=== PATIENT | male | born 1990 | race African-American/Black ===

== ENCOUNTER 2023-01-18 19:27 | Emergency (ER) | payer SELFPAY ==
[2023-01-18 20:01] VITALS: BP 140/79; PULSE 75; RESP 16; TEMP 36.9; O2SAT 100; BMI 23.3
--- NOTE | 2023-01-18 20:01 | ED_ITS ---
HPI - Neck Pain/Injury General Chief Complaint: Neck Pain/Injury Stated Complaint: Neck pain and Headache Time Seen by Provider: 01/18/23 20:06 Source: patient Mode of arrival: ambulatory Limitations: no limitations History of Present Illness HPI Narrative: 33 yo male presents to the ER for evaluation of posterior headache and stiff neck for the last 3 days. He states he woke up with the pain on the left side of his neck. It is worse with movement. He then developed a posterior headache. He has brief improvement with tylenol and Advil. No known injuries. No confusion, fever, chills, weakness, numbness or tingling. MD complaint: neck pain, upper back pain and other (headache) Onset (ago): day(s) (3) Place: home Radiation: left lateral, head and occiput Severity: moderate Severity scale (1-10): 6 Quality: aching and other (stiffness) Duration: constant Relieving factors: immobilization Exacerbating factors: movement of neck Associated symptoms: headache Treatments prior to arrival: none Related Data Previous Rx's Medication Instructions Recorded cyclobenzaprine 10 mg tablet 10 mg PO TID PRN muscle spasm #14 01/18/23 tabs lidocaine 5 % topical patch 1 patch topical DAILY #15 ea 01/18/23 naproxen 500 mg tablet 500 mg PO BID PRN pain #20 tabs 01/18/23 Allergies Allergy/AdvReac Type Severity Reaction Status Date / Time No Known Allergies Allergy Verified 01/18/23 20:04 Review of Systems Review of Systems: Yes all other systems are reviewed and are negative [facility] Social History Social History Advance Directives: No Advance Directives Information Provided: No Physical Exam Vital Signs: Vital Signs: Last Vital Signs Temp 98.5 F 01/18/23 20:01 Pulse 75 01/18/23 20:01 Resp 16 01/18/23 20:01 BP 140/79 H 01/18/23 20:01 Pulse Ox 100 01/18/23 20:01 O2 Del Method Room Air 01/18/23 20:01 BMI result Body Mass Index 23.3 Appearance: Alert. Oriented X3. No acute distress. HEENT: normal external inspection. normal TMs bilaterally. PERRL, EOMI. Neck: normal inspection. no midline tenderness. pain with rotation to the right. soft tissue tenderness of the left lateral neck and occipital area. CVS: Normal heart rate and rhythm. Pulses normal. Respiratory: No respiratory distress. Skin: Skin warm and dry. Normal skin color. Normal skin turgor. No rashes. Extremities: normal inspection x4, no joint swelling Neuro: Oriented X 3. No motor deficit. No sensory deficit. Medical Decision Making Medical Decision Making MDM Narrative: 33 yo male presenting to the ER for evaluation of nontraumatic left sided neck pain and occipital headache for the last 3 days. Exam and clinical presentation are c/w muscle strain and spasm. will treat accordingly. stable for d/c home. return precautions discussed. Differential Diagnosis Differential Diagnoses: The differential diagnosis associated with the presentation includes cervical muscle strain, torticollis, migraine headache, cluster headache, doubt meningitis or dissection Prescription Management I considered prescription management with: Pain Medication and Other (muscle relaxer) Critical Care Time Critical Care Time Critical Care Time: No Discharge Plan Discharge Clinical Impression: Cervical muscle strain Patient Disposition: Home, Self-Care Instructions: Cervical Strain (DC) Additional Instructions: Your pain is most likely due to muscle strain and spasm. Use ice several times per day for 20 minutes at a time for the next 48 hours and then change to heat. Gently work on range of motion of the neck and massage the areas of stiffness. Take medications as prescribed to help with pain and discomfort. Also recommend taking Tylenol 975 mg every 6-8 hours. Follow up with your Primary Care Doctor as needed. If you develop new or worsening symptoms call 911 or come back to the ER for further evaluation. Prescriptions: New cyclobenzaprine 10 mg tablet 10 mg PO TID PRN (Reason: muscle spasm) Qty: 14 0RF lidocaine 5 % adhesive patch,medicated 1 patch topical DAILY Qty: 15 0RF Rx Instructions: leave on most painful area for up to 12 hrs naproxen 500 mg tablet 500 mg PO BID PRN (Reason: pain) Qty: 20 0RF Interventions: ED Discharge Assessment Last Done: 01/18/23 20:11 Discharge Date/Time: 01/18/23 20:13
== END 2023-01-18 20:13 | disposition home or self-care (01) ==
PROVIDERS: Emergency Provider Internal Medicine
DX: M54.2 Cervicalgia (principal); R51.9 Headache, unspecified
CPT/HCPCS: 99282; 99283

== ENCOUNTER 2023-02-17 13:55 | Emergency (ER) | payer SELFPAY ==
[2023-02-17 14:11] VITALS: BP 138/85; PULSE 78; RESP 18; TEMP 36.9; O2SAT 98; BMI 28.2
--- NOTE | 2023-02-17 14:25 | ED_ITS ---
HPI - General Adult General Chief complaint: General Medical Stated complaint: tonsil infection Time Seen by Provider: 02/17/23 15:53 Source: patient, RN notes reviewed and old records reviewed Mode of arrival: ambulatory Limitations: no limitations History of Present Illness HPI narrative: Patient reports sore throat for the last couple days. Denies fever or chills. Blood work showed leukocytosis. [place] screen pending. COVID and strep negative. Patient otherwise is negative exam. Onset (ago): day(s) Location: mouth ( throat) Severity: mild Related Data Previous Rx's Medication Instructions Recorded cyclobenzaprine 10 mg tablet 10 mg PO TID PRN muscle spasm #14 01/18/23 tabs lidocaine 5 % topical patch 1 patch topical DAILY #15 ea 01/18/23 naproxen 500 mg tablet 500 mg PO BID PRN pain #20 tabs 01/18/23 ibuprofen 600 mg tablet 600 mg PO Q8H PRN pain #20 tabs 02/17/23 Allergies Allergy/AdvReac Type Severity Reaction Status Date / Time No Known Allergies Allergy Verified 01/18/23 20:04 Review of Systems 2 Constitutional: Constitutional: Reports as per HPI and Reports no additional constitutional complaints Eyes: Eyes: Reports no additional eye complaints ENT: Reports system reviewed and no additional complaints, except as documented, Denies dental pain, Denies dysphagia, Denies dry mouth, Denies ear discharge, Denies otalgia, Denies facial pain, Denies hearing loss, Denies hoarseness and Denies mouth lesions Cardiovascular: Cardiovascular: Reports no additional cardiovascular complaints Respiratory: Respiratory: Reports no additional respiratory complaints Gastrointestinal: Gastrointestinal: Reports no additional gastrointestinal complaints and Denies dysphagia Musculoskeletal: Musculoskeletal: Reports no additional musculoskeletal complaints Integumentary/Breasts: Skin/Breast: Reports system reviewed and no additional complaints, except as docu PMFSH Social History Social History Advance Directives: No Advance Directives Information Provided: No Physical Exam ED Vital Signs: Vital Signs - 24 hr 02/17/23 14:11 Temperature 98.5 F Pulse Rate 78 Respiratory Rate 18 Blood Pressure 138/85 Pulse Oximetry 98 Oxygen Delivery Method Room Air BMI result Body Mass Index 28.2 Const General: healthy appearing, no acute distress and well developed Nutritional Appearance: well nourished Orientation/consciousness: patient oriented x3 HENMT Head: Yes normal to inspection, Yes normocephalic and Yes atraumatic Face and sinus: Yes normal facial exam Mouth: Normal oral and palatal mucosa present Throat: Yes posterior oropharynx normal, Yes tonsils normal and Yes uvula midline Eyes General: appearance normal, both eyes and all related structures Neck Neck: Yes normal visual inspection, Yes full ROM and Yes trachea midline Thyroid: Thyroid normal Resp Effort & Inspection: normal respiratory effort, able to speak in complete sentences, no tracheal deviation and symmetric chest movement Auscultation: clear to auscultation bilaterally Cardio Rate: regular rate General: Yes no CVA tenderness Back/Spine/Pelvis Back: no CVA tenderness Skin General skin exam: elasticity normal, turgor normal and dry skin Neuro General: patient oriented x3 Psych Appearance: grossly normal Mental Status: mental status grossly normal Speech and movement: Normal speech and movement present Course Course Course Narrative: MIRIAM- 14:25PM 33yoM who is [place] Creole speaking presenting to the ER with complaints of a sore throat for the past 2 days. Reports that he has similar complaints and he went to [facility] on Tuesday and had to be given IV fluids due to he had some PRISCILLA. Although he was not given any antibiotics. He denies any other symptoms related to this. Denies recent travel. Plan: Labs, strep and COVID ordered patient sent back to the waiting room [place] [facility] [place] Patient reports sore throat for the last couple days. Denies fever or chills. Blood work showed leukocytosis. [place] screen pending. COVID and strep negative. Patient otherwise is negative exam. Will be sent home with ibuprofen. Patient will need to increase fluid intake, rest. Most likely viral Medical Decision Making Medical Decision Making [facility] Narrative: Patient reports sore throat for the last couple days. Denies fever or chills. Blood work showed no leukocytosis. [place] screen pending. COVID and strep negative. Patient otherwise is negative exam. Will be sent home with ibuprofen. Patient will need to increase fluid intake, rest. Most likely viral Differential Diagnosis Differential Diagnoses: The differential diagnosis associated with the presentation includes pharyngitis, strep, viral illness Lab Data 02/17/23 15:40 02/17/23 15:40 Labs: Lab Results 02/17/23 02/17/23 Range/Units 15:36 15:40 WBC 8.5 (4.8-10.8) X10*3/uL RBC 5.54 (4.60-5.80) X10*6/uL Hgb 15.9 (14.0-18.0) g/dl Hct 45.9 (42.0-52.0) % MCV 82.9 (80.0-98.0) fL MCH 28.7 (27.0-33.0) pg MCHC 34.6 (31.0-36.0) g/dl RDW 12.5 (11.0-16.0) % Plt Count 243 (160-400) X10*3/uL MPV 10.6 (9.4-12.4) fL Immature Gran % (Auto) 0.2 (0.0-0.4) % Neut % (Auto) 54.9 (45-73) % Lymph % (Auto) 34.5 (20-40) % [place] % (Auto) 9.5 (2-11) % Eos % (Auto) 0.5 (0-4) % Baso % (Auto) 0.4 (0-2) % Lymph # (Auto) 3.0 (1.2-4.9) X10*3/uL [place] # (Auto) 0.8 (0.1-1.2) X10*3/uL Eos # (Auto) 0.0 (0.0-0.4) X10*3/uL Baso # (Auto) 0.0 (0.0-0.2) X10*3/uL Abs Immat Gran (auto) 0.02 (0.00-0.03) X10*3/uL Absolute Neuts (auto) 4.7 (2.0-8.3) x10*3/uL Absolute Nucleated RBC 0.000 (0.0-0.012) X10*3/uL Nucleated RBC % (auto) 0.0 (0.0-0.2) /100WBC Sodium 141 (135-145) mmol/L Potassium 3.4 (3.3-5.1) mmol/L Chloride 108 (96-108) mmol/L Carbon Dioxide 27 (22-29) mmol/L Anion Gap 9 L (12-20) BUN 11 (9-16) mg/dL Creatinine 1.20 (0.5-1.4) mg/dL Estim Creat Clear Calc 79.4 Estimated GFR > 60 Random Glucose 110 (60-115) mg/dL Calcium 9.7 (8.4-10.2) mg/dL Magnesium 2.1 (1.6-2.6) mg/dL Total Bilirubin 0.4 (0.0-1.0) mg/dL AST 14 (5-37) U/L ALT 19 (0-40) U/L Alkaline Phosphatase 91 (39-117) U/L Total Protein 7.7 (6.5-8.0) g/dL Albumin 4.5 (3.5-5.0) g/dL COVID-19 (KENDRA) Negative (Negative) COVID-19 Clin Com See Note Monoscreen Negative (Negative) S. pyogenes GrpA MARINA Negative (Negative) Discharge Plan Discharge Clinical Impression: Pharyngitis with viral syndrome Patient Disposition: Home, Self-Care Instructions: Pharyngitis (ED), Viral Syndrome (ED) Additional Instructions: You were seen here for sore throat. You have no strep throat, no COVID. Most likely viral symptoms. Please make sure you drink plenty fluids and rest. You can take ibuprofen or Tylenol for discomfort. Please return to emergency department if you will have fever, chills or if your symptoms get worse Prescriptions: New ibuprofen 600 mg tablet 600 mg PO Q8H PRN (Reason: pain) Qty: 20 0RF No Action cyclobenzaprine 10 mg tablet 10 mg PO TID PRN (Reason: muscle spasm) Qty: 14 0RF lidocaine 5 % adhesive patch,medicated 1 patch topical DAILY Qty: 15 0RF Rx Instructions: leave on most painful area for up to 12 hrs naproxen 500 mg tablet 500 mg PO BID PRN (Reason: pain) Qty: 20 0RF Discharge Date/Time: 02/17/23 16:43
[2023-02-17 15:44] LABS: MANUAL DIFF FLAG NO
[2023-02-17 15:48] LABS: Basophils Percent Auto 0.4 % (0-2); Eosinophils Percent Auto 0.5 % (0-4); Hematocrit 45.9 % (42.0-52.0); Hemoglobin 15.9 g/dl (14.0-18.0); Imm Gran Abs Auto 0.02 X10*3/uL (0.00-0.03); Imm Gran Pct Auto 0.2 % (0.0-0.4); Lymphocytes Percent Auto 34.5 % (20-40); Mean Corpuscular HGB Conc 34.6 g/dl (31.0-36.0); Mean Corpuscular Hemoglobin 28.7 pg (27.0-33.0); Mean Corpuscular Volume 82.9 fL (80.0-98.0); Mean Platelet Volume 10.6 fL (9.4-12.4); Monocytes Absolute Auto 0.8 X10*3/uL (0.1-1.2); Monocytes Percent Auto 9.5 % (2-11); Neutrophils Absolute Auto 4.7 x10*3/uL (2.0-8.3); Neutrophils Percent Auto 54.9 % (45-73); Platelet Count 243 X10*3/uL (160-400); Red Blood Count 5.54 X10*6/uL (4.60-5.80); Red Cell Distribution Width 12.5 % (11.0-16.0); White Blood Count 8.5 X10*3/uL (4.8-10.8)
[2023-02-17 15:56] LABS: IDNOW Serial# 08D9AD1C; Strep A Nucleic Acid Negative (Negative)
[2023-02-17 16:02] LABS: COVID-19 Test Negative (Negative); IDNOW Serial# BCCEAD1C
[2023-02-17 16:04] LABS: Alanine Aminotransferase 19 U/L (0-40); Albumin Level 4.5 g/dL (3.5-5.0); Alkaline Phosphatase 91 U/L (39-117); Anion Gap 9 (12-20); Aspartate Amino Transferase 14 U/L (5-37); Bilirubin Total 0.4 mg/dL (0.0-1.0); Blood Urea Nitrogen 11 mg/dL (9-16); Calcium 9.7 mg/dL (8.4-10.2); Carbon Dioxide 27 mmol/L (22-29); Chloride 108 mmol/L (96-108); Creatinine Clr Calc Pharmacy 79.4; Estimated Glomerular Filt Rate > 60; Glucose Random 110 mg/dL (60-115); Magnesium 2.1 mg/dL (1.6-2.6); Potassium 3.4 mmol/L (3.3-5.1); Sodium 141 mmol/L (135-145); Total Protein 7.7 g/dL (6.5-8.0)
[2023-02-17 17:14] LABS: Monotest Negative (Negative)
== END 2023-02-17 16:43 | disposition home or self-care (01) ==
PROVIDERS: Physician Assistant Medical; Emergency Provider Emergency Medicine
DX: J02.9 Acute pharyngitis, unspecified (principal); B34.9 Viral infection, unspecified; Z20.822 Contact with and (suspected) exposure to COVID-19; Z20.828 Contact with and (suspected) exposure to other viral communicable diseases; Z79.899 Other long term (current) drug therapy
CPT/HCPCS: 36415; 80053; 83735; 85025; 86308; 87635; 87651; 99281; 99283

== ENCOUNTER 2023-03-28 18:08 | Emergency (ER) | payer SELFPAY ==
--- NOTE | ~2023-03-28 | CT_ITS ---
EXAMINATION: CT HEAD WITHOUT CONTRAST CLINICAL INFORMATION: Headache. COMPARISON: None available. TECHNIQUE: Contiguous axial imaging was performed from the skull base to vertex without intravenous administration of contrast. This CT examination was performed using dose optimization techniques as appropriate, variously including the following: *Automated exposure control *Adjustment of mA and/or kV according to patient size (this includes techniques or standardized protocols for targeted exams where dose is matched to indication/reason for exam; i.e. extremities or head) *Use of iterative reconstruction technique DLP: 685 mGy-cm FINDINGS: There is no evidence of acute intracranial hemorrhage or territorial infarction. No mass effect or midline shift is seen. West to white matter differentiation is well preserved. No extra-axial fluid collections are identified. No hydrocephalus. The osseous structures and soft tissues are normal. The mastoid air cells and visualized portions of the paranasal sinuses are well aerated. CT/CT head/brain wo IV con IMPRESSION: No acute intracranial pathology.
[2023-03-28 18:46] VITALS: BP 153/88; PULSE 71; RESP 16; TEMP 36.4; O2SAT 97; BMI 27.8
--- NOTE | 2023-03-28 18:51 | ED.GENADULT ---
HPI - General Adult General Chief complaint: Headache Stated complaint: headache Time Seen by Provider: 03/28/23 21:46 Source: patient Mode of arrival: ambulatory Limitations: no limitations History of Present Illness HPI narrative: 33 yo male who denies an PMH to me here with c/o R sided headache and sore throat was seen back in February for similar complaint - he was started on ibuprofen. When he takes the ibuprofen he feels better. He comes in as he still has the headache on the right side on and off but no associated neuro symptoms or vision changes. He feels he has some infection in his throat. He feels wooshing in the top of his head on the right when he looks up. He denies ear pain, sinus pain or fevers. MD complaint: headache Onset (ago): month(s) (1) Location: head and mouth Radiation: non-radiation Severity: moderate Quality: aching Pain Consistency: intermittent Relieving factors: none Exacerbating factors: other (looking up) Associated symptoms: other (sore throat) Treatments prior to arrival: NSAID Related Data Previous Rx's Medication Instructions Recorded cyclobenzaprine 10 mg tablet 10 mg PO TID PRN muscle spasm #14 01/18/23 tabs lidocaine 5 % topical patch 1 patch topical DAILY #15 ea 01/18/23 naproxen 500 mg tablet 500 mg PO BID PRN pain #20 tabs 01/18/23 ibuprofen 600 mg tablet 600 mg PO Q8H PRN pain #20 tabs 02/17/23 amoxicillin 875 mg-potassium 1 tab PO BID #14 tabs 03/28/23 clavulanate 125 mg tablet Allergies Allergy/AdvReac Type Severity Reaction Status Date / Time No Known Allergies Allergy Verified 01/18/23 20:04 Review of Systems Review of Systems: Constitutional : No Fever, No Chills, No Fatigue ENT/Mouth : pos sore throat, No Rhinorrhea Eyes: No Eye Pain, No Swelling, No Redness Cardiovascular : No Chest Pain, No SOB, No Dyspnea on Exertion Respiratory : No Cough, No Sputum Gastrointestinal : No Nausea, No Vomiting, No Diarrhea, No abdominal Pain Genitourinary : No Dysuria, No Urinary Frequency, No Hematuria, Musculoskeletal : No joint pain, No Myalgias, No Joint Swelling Skin : No Skin Lesions, No rash Neuro : No Weakness, No Numbness, No Dizziness, positive Headache Psych : No Anxiety/Panic, No Depression All other systems reviewed and are negative [facility] Past Medical History Attestation statement: The following information was validated with the patient. Source: old records reviewed Medical History No pertinent past medical history Social History Social History (Updated 03/28/23 @ 22:19 by Liat Ellis DO) Patient Tobacco Use Status: Never used Tobacco Smoked in Last 30 Days: No Advance Directives: No Advance Directives Information Provided: No Physical Exam ED Vital Signs: Vital Signs - 24 hr 03/28/23 18:46 03/28/23 20:21 Temperature 97.6 F 97.9 F Pulse Rate 71 65 Respiratory Rate 16 16 Blood Pressure 153/88 H 165/78 H Pulse Oximetry 97 99 Oxygen Delivery Method Room Air Room Air BMI result Body Mass Index 27.8 Appearance: Alert. Oriented X3. No acute distress. Eyes: Pupils equal, round and reactive to light. ENT: Pharynx moderate erythema of both tonsils with mild swelling and white exudates on both tonsils uvula is midline, no signs of [employer]. TM normal bilaterally Neck: Normal inspection. Neck supple. no meningeal signs CVS: Normal heart rate and rhythm. Pulses normal. Respiratory: No respiratory distress. Breath sounds normal. Abdomen: Soft and nontender. Skin: Skin warm and dry. Normal skin color. Normal skin turgor. Extremities: No lower extremity edema. No calf ttp Neuro: Oriented X 3. No motor deficit. No sensory deficit. Course Course Course Narrative: RME: 33 yold male presents to the ED for headache for one month. feels like liquid in head. denies trauama, lght senstivitiy, nausea, vomitting, or recent trauma. labs and hEad CT scan ordered Medications Administered Discontinued Medications Generic Name Dose Route Start Last Admin Trade Name Freq PRN Reason Stop Dose Admin Amoxicillin/Clavulanate Potassium 875 mg 03/28/23 22:30 03/28/23 22:41 Amoxicillin/Potassium Clav 875 Mg Tablet PO 03/28/23 22:31 875 mg ONCE ONE Administration Medical Decision Making Medical Decision Making MDM Narrative: 33 yo male otherwise healthy here with c/o persistent intermittent headaches without any other symptoms or fevers - doubt SAH or [employer] infection given lack of fever meningeal signs he has normal ROM of neck - CT head for mass ordered, he has sore throat - strep throat study ordered he has had persistent pharyngitis for 1 month and no improvement with OTC medications. May need trial of antibiotics. Differential Diagnosis Differential Diagnoses: The differential diagnosis associated with the presentation includes headache, pharyngitis, tension Admission/Observation not toxic, can be managed as outpatient Lab Data MDM Lab Attestation statement: I reviewed the patient's lab results. 03/28/23 19:39 03/28/23 19:38 Labs: Lab Results 03/28/23 03/28/23 03/28/23 Range/Units 19:38 19:39 22:07 WBC 10.5 (4.8-10.8) X10*3/uL RBC 5.15 (4.60-5.80) X10*6/uL Hgb 15.1 (14.0-18.0) g/dl Hct 44.2 (42.0-52.0) % MCV 85.8 (80.0-98.0) fL MCH 29.3 (27.0-33.0) pg MCHC 34.2 (31.0-36.0) g/dl RDW 12.6 (11.0-16.0) % Plt Count 233 (160-400) X10*3/uL MPV 10.9 (9.4-12.4) fL Immature Gran % (Auto) 0.2 (0.0-0.4) % Neut % (Auto) 64.9 (45-73) % Lymph % (Auto) 26.5 (20-40) % [place] % (Auto) 7.5 (2-11) % Eos % (Auto) 0.5 (0-4) % Baso % (Auto) 0.4 (0-2) % Lymph # (Auto) 2.8 (1.2-4.9) X10*3/uL [place] # (Auto) 0.8 (0.1-1.2) X10*3/uL Eos # (Auto) 0.1 (0.0-0.4) X10*3/uL Baso # (Auto) 0.0 (0.0-0.2) X10*3/uL Abs Immat Gran (auto) 0.02 (0.00-0.03) X10*3/uL Absolute Neuts (auto) 6.8 (2.0-8.3) x10*3/uL Absolute Nucleated RBC 0.000 (0.0-0.012) X10*3/uL Nucleated RBC % (auto) 0.0 (0.0-0.2) /100WBC Sodium 143 (135-145) mmol/L Potassium 3.3 (3.3-5.1) mmol/L Chloride 107 (96-108) mmol/L Carbon Dioxide 24 (22-29) mmol/L Anion Gap 15 (12-20) BUN 9 (9-16) mg/dL Creatinine 1.14 (0.5-1.4) mg/dL Estim Creat Clear Calc 85.9 Estimated GFR > 60 Random Glucose 119 H (60-115) mg/dL Calcium 9.9 (8.4-10.2) mg/dL Total Bilirubin 0.3 (0.0-1.0) mg/dL AST 18 (5-37) U/L ALT 22 (0-40) U/L Alkaline Phosphatase 82 (39-117) U/L Total Protein 7.7 (6.5-8.0) g/dL Albumin 4.5 (3.5-5.0) g/dL COVID-19 (KENDRA) Negative (Negative) COVID-19 Clin Com See Note Influenza Type A (MARINA) Negative (Negative) Influenza Type B (MARINA) Negative (Negative) Influenza A & B Note See Note S. pyogenes GrpA MARINA Negative (Negative) Independent Interpretation I performed an independent interpretation of an: CT Scan (no ICH) Radiology Impression Discussion of test interpretation with radiology: I have reviewed the radiologist's reading. External Record Review External record reviewed: Inpatient record Prescription Management I considered prescription management with: Antibiotic Discharge Plan Discharge Clinical Impression: Tension headache, Pharyngitis Patient Disposition: Home, Self-Care Instructions: Pharyngitis (ED), Acute Headache (ED) Additional Instructions: CT scan negative no strep throat, labs normal at this time given persistent sore throat will treat with antibiotics - culture is pending. return for fevers, worsening pain, numbness weakness, confusion or any other concerns. On amoxicillin-clavulanate, softer bowel movements are to be expected. Call your provider if you move your bowels more than 4 times a day, your bowel movements are almost all liquid, or you get a rash.? Prescriptions: New amoxicillin-pot clavulanate 875-125 mg tablet 1 tab PO BID Qty: 14 0RF No Action cyclobenzaprine 10 mg tablet 10 mg PO TID PRN (Reason: muscle spasm) Qty: 14 0RF lidocaine 5 % adhesive patch,medicated 1 patch topical DAILY Qty: 15 0RF Rx Instructions: leave on most painful area for up to 12 hrs naproxen 500 mg tablet 500 mg PO BID PRN (Reason: pain) Qty: 20 0RF ibuprofen 600 mg tablet 600 mg PO Q8H PRN (Reason: pain) Qty: 20 0RF Interventions: ED Discharge Assessment Last Done: 03/28/23 22:36 Discharge Date/Time: 03/28/23 22:47
[2023-03-28 19:44] LABS: MANUAL DIFF FLAG NO
[2023-03-28 19:46] LABS: Basophils Percent Auto 0.4 % (0-2); Eosinophils Absolute Auto 0.1 X10*3/uL (0.0-0.4); Eosinophils Percent Auto 0.5 % (0-4); Hematocrit 44.2 % (42.0-52.0); Hemoglobin 15.1 g/dl (14.0-18.0); Imm Gran Abs Auto 0.02 X10*3/uL (0.00-0.03); Imm Gran Pct Auto 0.2 % (0.0-0.4); Lymphocytes Absolute Auto 2.8 X10*3/uL (1.2-4.9); Lymphocytes Percent Auto 26.5 % (20-40); Mean Corpuscular HGB Conc 34.2 g/dl (31.0-36.0); Mean Corpuscular Hemoglobin 29.3 pg (27.0-33.0); Mean Corpuscular Volume 85.8 fL (80.0-98.0); Mean Platelet Volume 10.9 fL (9.4-12.4); Monocytes Absolute Auto 0.8 X10*3/uL (0.1-1.2); Monocytes Percent Auto 7.5 % (2-11); Neutrophils Absolute Auto 6.8 x10*3/uL (2.0-8.3); Neutrophils Percent Auto 64.9 % (45-73); Platelet Count 233 X10*3/uL (160-400); Red Blood Count 5.15 X10*6/uL (4.60-5.80); Red Cell Distribution Width 12.6 % (11.0-16.0); White Blood Count 10.5 X10*3/uL (4.8-10.8)
[2023-03-28 19:58] LABS: Alanine Aminotransferase 22 U/L (0-40); Albumin Level 4.5 g/dL (3.5-5.0); Alkaline Phosphatase 82 U/L (39-117); Anion Gap 15 (12-20); Aspartate Amino Transferase 18 U/L (5-37); Bilirubin Total 0.3 mg/dL (0.0-1.0); Blood Urea Nitrogen 9 mg/dL (9-16); Calcium 9.9 mg/dL (8.4-10.2); Carbon Dioxide 24 mmol/L (22-29); Chloride 107 mmol/L (96-108); Creatinine Clr Calc Pharmacy 85.9; Estimated Glomerular Filt Rate > 60; Glucose Random 119 mg/dL (60-115); Potassium 3.3 mmol/L (3.3-5.1); Sodium 143 mmol/L (135-145); Total Protein 7.7 g/dL (6.5-8.0)
[2023-03-28 20:05] LABS: COVID-19 Test Negative (Negative); IDNOW Serial# 08D9AD1C; IDNOW Serial# BCCEAD1C; Influenza A Negative (Negative); Influenza B2 Negative (Negative)
[2023-03-28 20:21] VITALS: BP 165/78; PULSE 65; RESP 16; TEMP 36.6; O2SAT 99
--- NOTE | 2023-03-28 21:54 | MHC.EDTECH ---
PT came in for a headache. This tech Offered him an Ice pack, Hot Pack, or to turn down the lights. Patient stated he was fine.
--- OUTSIDE RECORDS SUMMARY | 2023-03-28 21:55 | XMS_ITS | Continuity of Care Document ---
Author Name Unknown Organization [facility] ter Address [address] [place] [id number]- Care Team Providers Care Soc Analyst Name Role Phone Not on Staff, PCP Primary Care Physician Unavail able [place] [facility] [place]29[place]22 - 07/29/[address] [address]- Encounter Diagnosis Chest pain(Final) - 07/29/22 Acid reflux(Final) - 07/29/22 Discharge Disposition: A-D/C Home Attending Physician: Dawn Humphrey MD Admitting Physician: Dawn Humphrey MD Referring Physician: Not on Staff, Referring MD Allergies, Adverse Reactions, Alerts No Known Allergies Medications aluminum hydroxide/magnesium hydroxide/simethicone 200 mg-200 mg-20 mg/5 mL oral suspension 10 mL, By Mouth, 4 times a day, PRN for control of stomach acid, # 400 mL, 0 Refills, Acute 08/27/22 9:07:00 EDT, 07/29/22 9:06:00 EST, Suspension, Partial fill upon patient request if the prescription is for a schedule II opioid drug. Start Date: 07/29/22 Stop Date: 08/27/22 Status: Ordered Vital Signs Most recent to oldest [Reference Range]: 1 2 3 Oxygen Saturation [94-100 %] 100 % (07/29/22 8:23 AM) 100 % (07/29/22 6:32 AM) 100 % (07/29/22 2:52 AM) Pulse Rate [55-90 bpm] 63 bpm (07/29/22 8:23 AM) 67 bpm (07/29/22 6:32 AM) 70 bpm (07/29/22 2:52 AM) Blood Pressure [90-138/55-84 mm Hg] 130/76mm Hg (07/29/22 8:23 AM) 126/80mm Hg (07/29/22 6:32 AM) 120/74mm Hg (07/29/22 2:52 AM) Respiratory Rate [16-30 br/min] 16 br/min (07/29/22 8:23 AM) 16 br/min (07/29/22 12:28 AM) Temperature [96.8-100.4 DegF] 98.6 DegF (07/29/22 8:23 AM) 98.6 DegF (07/29/22 6:32 AM) 97.8 DegF (07/29/22 2:52 AM) Mode of Delivery (Oxygen) Room air (07/29/22 8:23 AM) Room air (07/29/22 6:32 AM) Room air (07/29/22 2:52 AM) Blood pressure sites Arm, right (07/29/22 8:23 AM) Arm, right (07/29/22 6:32 AM) Arm, left (07/29/22 2:52 AM) Temperature Route Oral (07/29/22 8:23 AM) Oral (07/29/22 2:52 AM) Oral (07/29/22 12:28 AM) EKG study * Event Display: ECG 12-Lead Authored Date: Please click on pdf link to open report * Event Display: ECG 12-Lead Authored Date: Ventricular Rate: 76 BPM Atrial Rate: 76 BPM P-R Interval: 152 ms QRS Duration: 74 ms Q-T Interval: 356 ms QTC Calculation(Bazett): 400 ms P [place]: 57 degrees R [place]: 9 degrees T [place]: 21 degrees Normal sinus rhythm with sinus arrhythmia Normal ECG No previous ECGs available Confirmed by KILO BAILEY ([id number]) on 07/29/2022 9:02:14 PM [place]: KILO BAILEY * Event Display: EKG Authored Date: Note * [place] CRAWFORD, Roselyn Saravia: PERFORM Event Display: Patient Education Leaflets Authored Date: [id number] Noncardiac Chest Pain ?? [id number] Noncardiac Chest Pain In most cases, people who come to the emergency room with chest pain don???t have a problem with their heart. Instead, the pain is caused by other conditions. It's important for the healthcare team to be sure you are not having a life-threatening cause for chest pain such as: ??? Heart attack ??? Blood clot in the lungs ??? Collapsed lung ??? Ruptured esophagus ??? Tearing of the aorta Once these major causes have been ruled out, you may have further evaluation for other causes of chest pain. These may be problems with the lungs, muscles, bones, digestive tract, nerves, or mental health. They include: ??? Inflammation around the lungs (pleurisy) ??? Collapsed lung (pneumothorax) ??? Lung inflammation (pleuritis or pneumonitis) ??? Fluid around the lung (pleural effusion) ??? Lung cancer (rare cause of chest pain) ??? Inflamed cartilage between the ribs (costochondritis) ??? Fibromyalgia ??? Rheumatoid arthritis ??? Chest wall strain ??? Reflux ??? Stomach ulcer ??? Spasms of the esophagus ??? Gall stones ??? Gallbladder inflammation ??? Panic or anxiety attacks ??? Emotional distress Your pain doesn???t seem to be coming from your heart. But sometimes the signs of a serious problemtake more time to appear. Continue to watch for the warning signs listed below. Home care Follow these guidelines when caring for yourself at home: ??? Rest today and don't do any strenuousactivity. ??? Take any prescribed medicine as directed. ?? Follow-up care Follow up with your healthcare provider as advised. ?? Call 911 Call 911 if any of these occur: ??? A change in the type of pain: if it feels different, becomes more severe, lasts longer, or begins to spread into your shoulder, arm, neck, jaw or back ??? Shortness of breath or increased pain with breathing ??? Weakness, dizziness, or fainting ??? Rapid heart beat ??? Crushing sensation in your chest ?? When to seek medical advice Call your healthcare provider right away if any of these occur: ??? Cough with dark colored sputum (phlegm) or blood ??? Fever of 100.4??F (38??C) or higher, or as directed by your healthcare provider ??? Swelling, pain or redness in one leg ?? Last Reviewed Date: 2021 ?? [employer]. All rights reserved. This information is not intended as a substitute for professional medical care. Always follow your healthcare professional's instructions. ?? * [place] CRAWFORD, Roselyn Saravia: PERFORM Event Display: Patient Education Leaflets Authored Date: [id number] GERD (Adult) ?? [id number] GERD (Adult) The esophagus is a tube that carries food from the mouth to the stomach. A valve (lower esophageal sphincter) prevents stomach acid from flowing upward. Sometimes this valve doesn't work correctly. Then stomach contents may flow (reflux) into the esophagus. When it happens again and again, it's called??GERD (gastroesophageal reflux disease).??GERD can irritate the esophagus. It can cause pain. Itcan also cause problems with swallowing or breathing. In severe cases, GERD can cause pneumonia that keeps coming back. This is from breathing in particles (aspiration). Symptoms of reflux include burning, pressure, or sharp pain in the upper belly (abdomen). Symptoms may also be in the mid- to lower chest. The pain can spread to the neck, back, or shoulder. You may have: ??? Belching ??? Acid taste in the back of the throat ??? Chronic cough ??? Sore throat ??? Hoarseness GERD symptoms often occur during the day after a big meal. They can also occur at night when lying down.?? Home care Lifestyle changes can help ease symptoms. Your healthcare provider may also prescribe medicines.??Symptoms often get better with treatment. But if treatment is stopped, the symptoms often return after a few months. Most people with GERD will need to continue treatment. Or they may need treatment onand off. Lifestyle changes ??? Limit or don't eat fatty, fried, or spicy foods. Also limit coffee, chocolate, mint, and foods with high acid content. These include tomatoes and citrus fruit and juices (orange, grapefruit, and lemon). ??? Don???t eat large meals, especially at night. Frequent, smaller meals are best. Don't lie down right after eating. And don???t eat anything 3 hours before going to bed. ??? Don't drink alcohol or smoke. As much as possible, stay away from secondhand smoke. ??? If you are overweight, losing weight will reduce symptoms.? Don't wear tight clothing around your stomach area. ??? If your symptoms occur during sleep, use a foam wedge to raise your upper body not just your head. Or place 4-inch blocks under the head of your bed. Or use 2 bed risers under your bed frame. ??? Talk with your provider if you have trouble making the suggested lifestyle changes. They may be able to give you resources to help. Medicines Medicines can help ease the symptoms of GERD. They also help prevent damage to the esophagus. Discuss a medicine plan with your healthcare provider. This may include one or more of these medicines: ??? Antacids. These help neutralize the normal acids in your stomach. ??? Acid blockers (histamine or H2 blockers). These decrease how much acid your stomach makes. ??? Acid inhibitors (proton pump inhibitors PPIs). These also decrease how much acid your body makes, but in a different way from the blockers. They may work better. But they can take a little longer to do so. Take an antacid 30 to 60 minutes after eating and at bedtime, but not at the same time as an acid chase. Try not to take medicines such as ibuprofen and aspirin. If you take aspirin for your heart or other health reasons, talk with your healthcare provider about stopping it. ?? Follow-up care Follow up with your healthcare provider as advised. ?? When to seek medical advice Call your healthcare provider if any of the following occur: ??? Stomach pain gets worse or moves to the lower right belly (appendix area) ??? Chest pain appears or gets worse, or spreads to the back, neck, shoulder, or arm ??? An kusx-pyw-vglefvs trial of medicine doesn't relieve your symptoms ???Weight loss that can't be explained ??? Trouble or pain swallowing ??? Frequent vomiting (can???t keep down liquids) ??? Blood in the stool or vomit (red or black in color) ??? Feeling weak or dizzy ??? Fever of 100.4??F (38??C) or higher, or as directed by your healthcare provider ??? Symptoms getworse or you have new symptoms ?? Last Reviewed Date: 2021 ?? [employer]. All rights reserved. This information is not intended as a substitute for professional medical care. Always follow your healthcare professional's instructions. ?? Patient Care team information Care Team Personnel Name: Not on Staff, PCP Position: [facility] Physician (General Medicine) Member Role: PCP Name: Roselyn Guthrie MD Position: [facility] Resident Member Role: ED Resident Address: Address: [address] [place] [address] Name: Jeniffer Ng RN Position: [facility] ED RN W/OE and Tasks Member Role: Patient Care Provider Name: Nery Loyd Position: [facility] ED TA [facility] Name: Dawn Humphrey MD Position: [facility] ED Medicine MD Member Role: Admitting Physician Address: Address: [address] [place] [address]
--- OUTSIDE RECORDS SUMMARY | 2023-03-28 21:55 | XMS_ITS | Continuity of Care Document ---
Author Name Unknown Organization [facility] ter Address [address] [place] [id number]- Care Team Providers Care Plastic Sewer Name Role Phone Not on Staff, PCP Primary Care Physician Unavail able Encounter [facility] Date(s): 02/17/23 - 02/17/[address] [address]- Discharge Disposition: A-D/C Walkout Attending Physician: Not on Staff, Attending MD Admitting Physician: Not on Staff, Admitting MD Referring Physician: Not on Staff, Referring MD Allergies, Adverse Reactions, Alerts No Known Allergies Vital Signs Most recent to oldest [Reference Range]: 1 Height 163 cm (02/17/23 8:52 AM) Oxygen Saturation [94-100 %] 59 % *L* (02/17/23 8:52 AM) Pulse Rate [55-90 bpm] 59 bpm (02/17/23 8:52 AM) Blood Pressure [90-138/55-84 mm Hg] 131/ 69mm Hg (02/17/23 8:52 AM) Respiratory Rate [16-30 br/min] 18 br/mi n (02/17/23 8:52 AM) Temperature [96.8-100.4 DegF] 98.2 DegF (02/17/23 8:52 AM) Mode of Delivery (Oxygen) Room air (02/17/23 8:52 AM) Blood pressure sites Arm, left (02/17/23 8:52 AM) Temperature Route Oral (02/17/23 8:52 AM) Dry Weight 74 kg (02/17/23 8:52 AM) Dry Weight Obtained Via Patient/family s tated (02/17/23 8:52 AM) Patient Care team information Care Team Personnel Name: Not on Staff, PCP Position: S Physician (General Medicine) Member Role: PCP Care Team Related Persons Name: CORY MEDINA Address: [address] [place] [address]
--- OUTSIDE RECORDS SUMMARY | 2023-03-28 21:55 | XMS_ITS | Continuity of Care Document ---
Author Name Unknown Organization [facility] Address [address] [place] [id number]- Care Team Providers Care Social Insurance Administrator Name Role Phone Not on Staff, PCP Primary Care Physician Unavail able Encounter [facility] Date(s): 10/11/22 - 10/11/[address] [address]- Discharge Disposition: A-D/C Walkout Attending Physician: Not on Staff, Attending MD Admitting Physician: Not on Staff, Admitting MD Referring Physician: Not on Staff, Referring MD Allergies, Adverse Reactions, Alerts No Known Allergies Vital Signs Most recent to oldest [Reference Range]: 1 Oxygen Saturation [94-100 %] 100 % (10/11/22 5:17 PM) Pulse Rate [55-90 bpm] 73 bpm (10/11/22 5:17 PM) Respiratory Rate [16-30 br/min] 20 br/mi n (10/11/22 5:17 PM) Mode of Delivery (Oxygen) Room air (10/11/22 5:17 PM) Patient Care team information Care Team Personnel Name: Not on Staff, PCP Position: [facility] Physician (General Medicine) Member Role: PCP Care Team Related Persons Name: CORY MEDINA Address: home [address] [place] [address]
[2023-03-28 22:23] LABS: IDNOW Serial# 08D9AD1C; Strep A Nucleic Acid Negative (Negative)
[2023-03-28] MEDS: Amoxicillin/Potassium Clav 875 MG TABLET PO (22:41)
== END 2023-03-28 22:47 | disposition home or self-care (01) ==
PROVIDERS: Physician Assistant; Emergency Provider Emergency Medicine
DX: G44.209 Tension-type headache, unspecified, not intractable (principal); J02.9 Acute pharyngitis, unspecified; Z11.52 Encounter for screening for COVID-19; Z20.822 Contact with and (suspected) exposure to COVID-19; Z79.899 Other long term (current) drug therapy
CPT/HCPCS: 70450; 80053; 85025; 87502; 87635; 87651; 99284

== ENCOUNTER 2023-12-02 00:57 | Emergency (ER) | payer OTHER, SELFPAY ==
[2023-12-02 01:17] VITALS: BP 139/91; PULSE 75; RESP 99; TEMP 37.4; O2SAT 99; BMI 24.4
--- NOTE | 2023-12-02 01:55 | ED_ITS ---
HPI - Headache General Chief Complaint: Headache Stated Complaint: Pressure on top of head Time Seen by Provider: 12/02/23 01:36 Source: patient Mode of arrival: ambulatory Limitations: no limitations History of Present Illness ED Provider: Dr. Jordan Canales HPI Narrative: 33-year-old male who presents emergency department for evaluation of headache times months. The patient states that he has been having headaches for proximally 6 months. He describes the headache as a pressure-like sensation on the top of his head. He states that he gets the headache daily. The headache seems to be exacerbated by eating or drinking sugary beverages. He states that sometimes it is hard to swallow when he has the headache. He also states that his mouth gets watery when he gets the headache as well. The patient was seen in the emergency department 3 times between 01/18/2023 and 03/28/2023 for headache and throat pain. He did have a CT scan of the brain which is unremarkable and was treated for possible pharyngitis with Augmentin. He states that his headaches did improve but then came back several months ago He denied fever, chills, rhinorrhea, sore throat, cough, chest pain, shortness of breath, nausea, vomiting, photophobia, phonophobia, numbness or weakness Related Data Previous Rx's ?Medication ?Instructions ?Recorded cyclobenzaprine 10 mg tablet 10 mg PO TID PRN muscle spasm #14 01/18/23 tabs lidocaine 5 % topical patch 1 patch topical DAILY #15 ea 01/18/23 naproxen 500 mg tablet 500 mg PO BID PRN pain #20 tabs 01/18/23 ibuprofen 600 mg tablet 600 mg PO Q8H PRN pain #20 tabs 02/17/23 amoxicillin 875 mg-potassium 1 tab PO BID #14 tabs 03/28/23 clavulanate 125 mg tablet aartkpo-ycnpknoyxpezt-yzsslwpq 250 2 tab PO Q6H PRN headache #20 tabs 12/02/23 mg-250 mg-65 mg tablet (Excedrin Extra Strength) Allergies Allergy/AdvReac Type Severity Reaction Status Date / Time No Known Allergies Allergy Verified 12/02/23 01:18 Review of Systems Review of Systems: Yes all other systems are reviewed and are negative [facility] [place] [facility] Past Medical History [facility] Narrative: Social history: He denies tobacco use. Occasionally drinks alcohol. He denies drug use. Medical History No pertinent past medical history Social History Social History (Updated 03/28/23 @ 22:19 by Liat Ellis DO) Patient Tobacco Use Status: Never used Tobacco Advance Directives: No Advance Directives Information Provided: Yes Physical Exam Vital Signs: Vital Signs: Last Vital Signs Temp 99.3 F 12/02/23 01:17 Pulse 75 12/02/23 01:17 Resp 99 H 12/02/23 01:17 BP 139/91 H 12/02/23 01:17 Pulse Ox 99 12/02/23 01:17 O2 Del Method Room Air 12/02/23 01:17 BMI result Body Mass Index 24.4 Questionable signs did reveal an elevated blood pressure of 131 over is unremarkable Exam: General: Awake, alert in no distress Head: Normocephalic, atraumatic EENT: PERRL, Lids normal, sclera normal, conjunctiva normal, nose normal , ears normal, throat without erythema or exudates. No tenderness palpation over his sinuses or temporal artery areas of his scalp Neck: Supple, no adenopathy Lung: breath sounds symmetric, no wheezing, rales or rhonchi Chest: symmetric movement, nontender Heart: regular rate and rhythm, normal S1, S2 no murmurs or rubs Abdomen: soft, non-tender, nondistended, normal bowel sounds Back: no vertebral tenderness, no CVAT Extremities: no deformities, moves all extremities symmetrically Neuro: Awake, alert, oriented, normal speech, cranial nerves intact, moves all extremities symmetrically Psych: Pleasant, cooperative Medical Decision Making Medical Decision Making MDM Narrative: 33-year-old male who presents emergency department for evaluation of headache times 6 months. Patient had 3 visits to the emergency department proximally 6 months ago and had negative CT scan of the head and was treated for pharyngitis with Augmentin with the initial improvement of his symptoms however his headaches have come back. States that the headache as a pressure-like sensation at the top of his head which seems to be worse if he eats sweet food or sugary beverages. He had no systemic symptoms, photophobia, phonophobia, numbness, weakness. His headache did not get worse this morning but he was concerned that his headaches were persisting therefore came to the emergency department for evaluation. Vital signs revealed an elevated blood pressure otherwise unremarkable. Examination was normal including a normal neurologic exam. Differential diagnosis: ?Includes but is not limited to migraine headaches, nonspecific headache, sinusitis, temporal arteritis, malignancy/mass effect, subarachnoid hemorrhage Patient was initially treated with the following:Tylenol 650 mg orally and aspirin 160 mg orally Course: The patient's physical examination was unremarkable. The patient's headache does not seem to fit any specific pattern. The patient was given a prescription for Excedrin migraine 2 pills every 6 hours as needed for headache. He was advised to follow up with his doctor for re-evaluation and to return if his symptoms get worse who tells me who symptoms that are concerning to him Admission/Observation Consideration of admission/observation: Escalation of care including admission/observation considered Prescription Management I considered prescription management with: Pain Medication Discharge Plan Discharge Clinical Impression: Headache Patient Disposition: Home, Self-Care Additional Instructions: Your exam was unremarkable. At this time I do not think that you have an infection causing your headaches or your other symptoms. You had a CT scan of your brain on 03/28/2023 and this was normal which is reassuring Take Excedrin migraine 2 pills every 6 hours as needed for headache. Follow-up with your doctor in 2 days. Please return to the emergency department if your symptoms get worse or if you develop any symptoms that are concerning to you. Prescriptions: New Excedrin Extra Strength 250-250-65 mg tablet 2 tab PO Q6H PRN (Reason: headache) Qty: 20 0RF No Action cyclobenzaprine 10 mg tablet 10 mg PO TID PRN (Reason: muscle spasm) Qty: 14 0RF lidocaine 5 % adhesive patch,medicated 1 patch topical DAILY Qty: 15 0RF Rx Instructions: leave on most painful area for up to 12 hrs naproxen 500 mg tablet 500 mg PO BID PRN (Reason: pain) Qty: 20 0RF ibuprofen 600 mg tablet 600 mg PO Q8H PRN (Reason: pain) Qty: 20 0RF amoxicillin-pot clavulanate 875-125 mg tablet 1 tab PO BID Qty: 14 0RF Print Language: Tajik
[2023-12-02] MEDS: Aspirin 81 MG TAB.CHEW 162 MG PO (02:05)
[2023-12-02] MEDS: Acetaminophen 325 MG TABLET 650 MG PO (02:05)
[2023-12-02 02:13] VITALS: BP 130/89; PULSE 83; RESP 16; TEMP 37.2; O2SAT 98
== END 2023-12-02 02:14 | disposition home or self-care (01) ==
PROVIDERS: Emergency Provider Emergency Medicine Emergency Medical Services
DX: R51.9 Headache, unspecified (principal); Z79.899 Other long term (current) drug therapy
CPT/HCPCS: 99283; 99284

== ENCOUNTER 2024-04-05 04:33 | Emergency (ER) | payer OTHER, SELFPAY ==
--- NOTE | 2024-04-05 | ECG_ITS ---
Test Reason : WEAKNESS Blood Pressure : / mmHG Vent. Rate : 077 BPM Atrial Rate : 077 BPM P-R Int : 164 ms QRS Dur : 082 ms QT Int : 362 ms P-R-T Axes : 059 002 035 degrees QTc Int : 409 ms Normal sinus rhythm Normal ECG No previous ECGs available Referred By: Generic ED Physician Electronically Signed By:Owen Baltazar
[2024-04-05 04:38] VITALS: BP 144/97; PULSE 73; RESP 18; TEMP 36.8; O2SAT 99; BMI 30.9
--- NOTE | 2024-04-05 04:51 | PC.NURSE ---
pt ambulatory from waiting room. pt a&ox4, respirations even and unlabored. pt reporting onset of weakness, head tingling, throat soreness and difficulty swallowing x3 weeks. pt reports poor PO intake. pt neuros in tact. pt denies headache, chest pain and shortness of breath. 18G placed in left ac, labs obtained, pt swabbed. aware of pt symptoms.
[2024-04-05 04:53] LABS: MANUAL DIFF FLAG NO
[2024-04-05 04:54] LABS: Basophils Percent Auto 0.4 % (0-2); Eosinophils Absolute Auto 0.1 X10*3/uL (0.0-0.4); Eosinophils Percent Auto 1.3 % (0-4); Hematocrit 43.4 % (42.0-52.0); Hemoglobin 15.3 g/dl (14.0-18.0); Imm Gran Abs Auto 0.02 X10*3/uL (0.00-0.03); Imm Gran Pct Auto 0.3 % (0.0-0.4); Lymphocytes Absolute Auto 3.9 X10*3/uL (1.2-4.9); Lymphocytes Percent Auto 51.7 % (20-40); Mean Corpuscular HGB Conc 35.3 g/dl (31.0-36.0); Mean Corpuscular Hemoglobin 29.3 pg (27.0-33.0); Mean Platelet Volume 10.5 fL (9.4-12.4); Monocytes Absolute Auto 0.6 X10*3/uL (0.1-1.2); Monocytes Percent Auto 7.4 % (2-11); Neutrophils Absolute Auto 2.9 x10*3/uL (2.0-8.3); Neutrophils Percent Auto 38.9 % (45-73); Platelet Count 247 X10*3/uL (160-400); Red Blood Count 5.23 X10*6/uL (4.60-5.80); Red Cell Distribution Width 12.8 % (11.0-16.0); White Blood Count 7.5 X10*3/uL (4.8-10.8)
[2024-04-05 05:09] LABS: Alanine Aminotransferase 40 U/L (0-40); Albumin Level 4.2 g/dL (3.5-5.0); Alkaline Phosphatase 87 U/L (39-117); Anion Gap 13 (12-20); Aspartate Amino Transferase 30 U/L (5-37); Bilirubin Total 0.3 mg/dL (0.0-1.0); Blood Urea Nitrogen 9 mg/dL (9-16); Calcium 9.5 mg/dL (8.4-10.2); Carbon Dioxide 23 mmol/L (22-29); Chloride 108 mmol/L (96-108); Creatinine Clr Calc Pharmacy 79.6; Estimated Glomerular Filt Rate > 60; Glucose Random 120 mg/dL (60-115); Potassium 3.4 mmol/L (3.3-5.1); Sodium 141 mmol/L (135-145); Total Protein 7.4 g/dL (6.5-8.0)
[2024-04-05 05:19] LABS: Troponin-I High Sensitivity < 2.7 ng/L (<3.5-35.0)
[2024-04-05 05:21] LABS: IDNOW Serial# 6674DD1D; Strep A Nucleic Acid Negative (Negative)
[2024-04-05 05:33] LABS: Influenza A PCR NEGATIVE (Negative); Influenza B PCR NEGATIVE (Negative); Resp Syncy Virus RNA Qual PCR NEGATIVE (Negative); SARS COV2 PCR INHOUSE NEGATIVE (Negative)
--- NOTE | 2024-04-05 05:42 | ED.GENADULT ---
HPI - General Adult General Chief complaint: General Medical Stated complaint: Trouble swallowing Time Seen by Provider: 04/05/24 05:40 Source: patient Mode of arrival: ambulatory Limitations: no limitations History of Present Illness ED Provider: yovana ROE narrative: Patient complaining of sore throat for last few days painful to swallow no fever no chills no vomiting no abdominal pain Related Data Previous Rx's ?Medication ?Instructions ?Recorded cyclobenzaprine 10 mg tablet 10 mg PO TID PRN muscle spasm #14 01/18/23 tabs lidocaine 5 % topical patch 1 patch topical DAILY #15 ea 01/18/23 naproxen 500 mg tablet 500 mg PO BID PRN pain #20 tabs 01/18/23 ibuprofen 600 mg tablet 600 mg PO Q8H PRN pain #20 tabs 02/17/23 amoxicillin 875 mg-potassium 1 tab PO BID #14 tabs 03/28/23 clavulanate 125 mg tablet zypnqbg-rqcdzvvtyyugk-klfudfui 250 2 tab PO Q6H PRN headache #20 tabs 12/02/23 mg-250 mg-65 mg tablet (Excedrin Extra Strength) amoxicillin 875 mg-potassium 1 tab PO BID #20 tabs 04/05/24 clavulanate 125 mg tablet ibuprofen 600 mg tablet 600 mg PO Q6H PRN fever or pain 04/05/24 #30 tabs Allergies Allergy/AdvReac Type Severity Reaction Status Date / Time No Known Allergies Allergy Verified 04/05/24 04:39 Review of Systems Review of Systems: Yes all other systems are reviewed and are negative PMFSH Past Medical History Medical History No pertinent past medical history Social History Social History Patient Tobacco Use Status: Never used Tobacco Smoked in Last 30 Days: No Use of substances other than those prescribed or required for medical reasons: No Advance Directives: No Advance Directives Information Provided: Yes Do you have a plan to hurt others: No Plan Physical Exam ED Vital Signs: Vital Signs - 24 hr 04/05/24 04:38 Temperature 98.2 F Pulse Rate 73 Respiratory Rate 18 Blood Pressure 144/97 H Pulse Oximetry 99 Oxygen Delivery Method Room Air BMI result Body Mass Index 30.9 Appearance: Alert. Oriented X3. No acute distress. ENT: Pharynx erythematous Oral Mucosa moist no exudates Neck: Normal inspection. Neck supple. No stridor CVS: Normal heart rate and rhythm. Pulses normal. Respiratory: No respiratory distress. Equal air entry bilateral, no wheezing/rales/rhonchi Skin: Skin warm and dry. Normal skin color. Normal skin turgor. Extremities: No lower extremity edema. Neuro: Oriented X 3. Medications Administered Discontinued Medications Generic Name Dose Route Start Last Admin Trade Name Indraq PRN Reason Stop Dose Admin Amoxicillin/Clavulanate Potassium 875 mg 04/05/24 05:43 04/05/24 06:05 Amoxicillin/Potassium Clav 875 Mg Tablet PO 04/05/24 05:44 875 mg ONCE ONE Administration Medical Decision Making Medical Decision Making [facility] Narrative: Patient clinically with acute pharyngitis/strep of the rapid strep is negative will prescribe him Augmentin patient is able to swallow solids and can have liquids but it is painful discharge patient home on Augmentin Differential Diagnosis Differential Diagnoses: The differential diagnosis associated with the presentation includes Lab Data [facility] Lab Attestation statement: I reviewed the patient's lab results. 04/05/24 04:48 04/05/24 04:48 Labs: Lab Results 04/05/24 Range/Units 04:48 WBC 7.5 (4.8-10.8) X10*3/uL RBC 5.23 (4.60-5.80) X10*6/uL Hgb 15.3 (14.0-18.0) g/dl Hct 43.4 (42.0-52.0) % MCV 83.0 (80.0-98.0) fL MCH 29.3 (27.0-33.0) pg MCHC 35.3 (31.0-36.0) g/dl RDW 12.8 (11.0-16.0) % Plt Count 247 (160-400) X10*3/uL MPV 10.5 (9.4-12.4) fL Immature Gran % (Auto) 0.3 (0.0-0.4) % Neut % (Auto) 38.9 L (45-73) % Lymph % (Auto) 51.7 H (20-40) % [place] % (Auto) 7.4 (2-11) % Eos % (Auto) 1.3 (0-4) % Baso % (Auto) 0.4 (0-2) % Lymph # (Auto) 3.9 (1.2-4.9) X10*3/uL [place] # (Auto) 0.6 (0.1-1.2) X10*3/uL Eos # (Auto) 0.1 (0.0-0.4) X10*3/uL Baso # (Auto) 0.0 (0.0-0.2) X10*3/uL Abs Immat Gran (auto) 0.02 (0.00-0.03) X10*3/uL Absolute Neuts (auto) 2.9 (2.0-8.3) x10*3/uL Absolute Nucleated RBC 0.000 (0.0-0.012) X10*3/uL Nucleated RBC % (auto) 0.0 (0.0-0.2) /100WBC Sodium 141 (135-145) mmol/L Potassium 3.4 (3.3-5.1) mmol/L Chloride 108 (96-108) mmol/L Carbon Dioxide 23 (22-29) mmol/L Anion Gap 13 (12-20) BUN 9 (9-16) mg/dL Creatinine 1.28 (0.5-1.4) mg/dL Estim Creat Clear Calc 79.6 Estimated GFR > 60 Random Glucose 120 H (60-115) mg/dL Calcium 9.5 (8.4-10.2) mg/dL Total Bilirubin 0.3 (0.0-1.0) mg/dL AST 30 (5-37) U/L ALT 40 (0-40) U/L Alkaline Phosphatase 87 (39-117) U/L Troponin I High Sens < 2.7 (<3.5-35.0) ng/L Total Protein 7.4 (6.5-8.0) g/dL Albumin 4.2 (3.5-5.0) g/dL Influenza Type A (PCR) NEGATIVE (Negative) Influenza Type B (PCR) NEGATIVE (Negative) RSV RNA Qual (PCR) NEGATIVE (Negative) SARS-CoV-2 RNA (RT-PCR) NEGATIVE (Negative) S. pyogenes GrpA MARINA Negative (Negative) Discharge Plan Discharge Clinical Impression: Acute bacterial pharyngitis Patient Disposition: Home, Self-Care Instructions: Pharyngitis (ED) Additional Instructions: Take antibiotic as prescribed Tylenol/Motrin for pain follow with your PCP as needed Prescriptions: New ibuprofen 600 mg tablet 600 mg PO Q6H PRN (Reason: fever or pain) Qty: 30 0RF amoxicillin-pot clavulanate 875-125 mg tablet 1 tab PO BID Qty: 20 0RF No Action cyclobenzaprine 10 mg tablet 10 mg PO TID PRN (Reason: muscle spasm) Qty: 14 0RF lidocaine 5 % adhesive patch,medicated 1 patch topical DAILY Qty: 15 0RF Rx Instructions: leave on most painful area for up to 12 hrs naproxen 500 mg tablet 500 mg PO BID PRN (Reason: pain) Qty: 20 0RF ibuprofen 600 mg tablet 600 mg PO Q8H PRN (Reason: pain) Qty: 20 0RF amoxicillin-pot clavulanate 875-125 mg tablet 1 tab PO BID Qty: 14 0RF Excedrin Extra Strength 250-250-65 mg tablet 2 tab PO Q6H PRN (Reason: headache) Qty: 20 0RF Interventions: ED Discharge Assessment Last Done: 04/05/24 06:09 Discharge Date/Time: 04/05/24 06:09 Print Language: Cuban
[2024-04-05] MEDS: Amoxicillin/Potassium Clav 875 MG TABLET PO (06:05)
[2024-04-05 06:09] VITALS: BP 144/97; PULSE 73; RESP 18; TEMP 36.8; O2SAT 99
== END 2024-04-05 06:09 | disposition home or self-care (01) ==
PROVIDERS: Emergency Provider Internal Medicine
DX: J02.9 Acute pharyngitis, unspecified (principal); R13.10 Dysphagia, unspecified; Z03.818 Encounter for observation for suspected exposure to other biological agents ruled out; Z79.899 Other long term (current) drug therapy
CPT/HCPCS: 0241U; 36415; 80053; 84484; 85025; 87651; 93005; 99283; 99284

== ENCOUNTER → 2024-04-05 04:42 | Outpatient (BNV) | payer SELFPAY | PROVIDERS: Emergency Provider Internal Medicine; Visit Provider Internal Medicine Cardiovascular Disease | DX: R53.1 Weakness (principal) | CPT/HCPCS: 93010 ==

== ENCOUNTER 2024-09-18 13:26 | Emergency (ER) | payer OTHER, SELFPAY ==
--- NOTE | ~2024-09-18 | CT_ITS ---
EXAMINATION: CT HEAD WITHOUT IV CONTRAST HISTORY: worsening daily headaches. TECHNIQUE: Unenhanced helical CT of the head was performed per standard departmental protocol. Coronal and sagittal reformats of the head were also evaluated. One or more of the following techniques was used for dose reduction: Automated exposure control, adjustment of the mA and/or kV according to patient size, use of iterative reconstruction technique. DLP: 675 mGy-cm COMPARISON: Comparison is made with the prior examination dated 03/28/2023. FINDINGS: BRAIN: The brain parenchyma is unremarkable. There is normal duff/white differentiation. The ventricular system is normal in size and configuration. There is no mass effect or midline shift. No intra- or extra-axial fluid collections are identified. SINUSES: The visualized paranasal sinuses are clear. The mastoid air cells and middle ear cavities are well pneumatized. ORBITS: The visualized orbits are unremarkable. BONES/SOFT TISSUES: The extracranial soft tissues are unremarkable. The calvarium is intact. No suspicious lytic or sclerotic lesions. CT/CT head/brain wo IV con IMPRESSION: No acute intracranial abnormality. Electronically signed by: Sundeep Martin MD 09/18/2024 03:23 PM EDT
[2024-09-18 13:30] VITALS: BP 143/90; PULSE 77; RESP 18; TEMP 36.6; O2SAT 99; BMI 23.3
--- NOTE | 2024-09-18 13:39 | ED.GENADULT ---
HPI - General Adult General Chief complaint: Headache Stated complaint: headache Time Seen by Provider: 09/18/24 14:57 Source: patient Mode of arrival: ambulatory Limitations: no limitations History of Present Illness ED Provider: LOLY ROE narrative: 34 yo male with chronic headaches not on any meds takes ibuprofen or tylenol. He states had normal CT scan in 2022 here. He notes they used to be much worse but he has headaches dome of head and frontal worse in warmer weather - they last 3 to 4 days and he is only pain free for 2 days. He has no fevers, head trauma, numbness, weakness, nv. He notes he does get sinus pressure and congestion but takes no medications for it. He states he saw his PCP but didn't mention the headaches and so he has no medications for them. complaint: headaches Onset (ago): year(s) (2) Location: head Radiation: non-radiation Severity: moderate Quality: aching Pain Consistency: intermittent Relieving factors: none Exacerbating factors: none Associated symptoms: denies other symptoms Treatments prior to arrival: none Related Data Previous Rx's ?Medication ?Instructions ?Recorded cyclobenzaprine 10 mg tablet 10 mg PO TID PRN muscle spasm #14 01/18/23 tabs lidocaine 5 % topical patch 1 patch topical DAILY #15 ea 01/18/23 naproxen 500 mg tablet 500 mg PO BID PRN pain #20 tabs 01/18/23 ibuprofen 600 mg tablet 600 mg PO Q8H PRN pain #20 tabs 02/17/23 amoxicillin 875 mg-potassium 1 tab PO BID #14 tabs 03/28/23 clavulanate 125 mg tablet wawagje-bpuionnwhfzdp-isogpcwt 250 2 tab PO Q6H PRN headache #20 tabs 12/02/23 mg-250 mg-65 mg tablet (Excedrin Extra Strength) amoxicillin 875 mg-potassium 1 tab PO BID #20 tabs 04/05/24 clavulanate 125 mg tablet ibuprofen 600 mg tablet 600 mg PO Q6H PRN fever or pain 04/05/24 #30 tabs topiramate 25 mg tablet 25 mg PO BEDTIME #30 tabs 09/18/24 Allergies Allergy/AdvReac Type Severity Reaction Status Date / Time No Known Allergies Allergy Verified 09/18/24 13:33 Review of Systems Review of Systems: Constitutional : No Fever, No Chills, No Fatigue ENT/Mouth : No sore throat, No Rhinorrhea Eyes: No Eye Pain, No Swelling, No Redness Cardiovascular : No Chest Pain, No SOB, No Dyspnea on Exertion Respiratory : No Cough, No Sputum Gastrointestinal : No Nausea, No Vomiting, No Diarrhea, No abdominal Pain Genitourinary : No Dysuria, No Urinary Frequency, No Hematuria, Musculoskeletal : No joint pain, No Myalgias, No Joint Swelling Skin : No Skin Lesions, No rash Neuro : No Weakness, No Numbness, No Dizziness, positive Headache All other systems reviewed and are negative [facility] Past Medical History Attestation statement: The following information was validated with the patient. Source: old records reviewed Medical History No pertinent past medical history Social History Social History Patient Tobacco Use Status: Never used Tobacco Advance Directives: No Advance Directives Information Provided: No Do you have a plan to hurt others: No Plan Physical Exam ED Vital Signs: Vital Signs - 24 hr 09/18/24 13:30 Temperature 98 F Pulse Rate 77 Respiratory Rate 18 Blood Pressure 143/90 H Pulse Oximetry 99 Oxygen Delivery Method Room Air BMI result Body Mass Index 23.3 Appearance: Alert. Oriented X3. No acute distress. Eyes: Pupils equal, round and reactive to light. ENT: Pharynx normal. Neck: Normal inspection. Neck supple. CVS: Normal heart rate and rhythm. Pulses normal. Respiratory: No respiratory distress. Breath sounds normal. Abdomen: Soft and nontender. Skin: Skin warm and dry. Normal skin color. Normal skin turgor. Extremities: No lower extremity edema. No calf ttp Neuro: Oriented X 3. No motor deficit. No sensory deficit. CN2-12 intact Course Course Course Narrative: RME, this is a rapid medical exam performed by Andriy Bell please refer to primary provider for complete H&P- 34-year-old male presents for evaluation of a headache. He reports intermittent headaches for the last few months. He was seen here on March of [address] scan of his head which was unremarkable. Patient denies any trauma to the head or neck. Denies any associated symptoms. He saw his PCP last week and reports he had some blood work done. no neuro deficits in triage. Medications Administered Discontinued Medications Generic Name Dose Route Start Last Admin Trade Name Patty PRN Reason Stop Dose Admin Ketorolac Tromethamine 30 mg 09/18/24 15:32 09/18/24 15:48 Ketorolac Tromethamine 30 Mg/Ml Vial IM 09/18/24 15:33 30 mg ONCE ONE Administration Medical Decision Making Medical Decision Making [facility] Narrative: 34 yo male with chronic headaches not on any meds here with c/o persistent chronic headaches he is not toxic no neuro deficits and no fevers to suggest [employer] infection, given chronicity doubt SAH at this time CT head for mass ordered, IM toradol after much discussion and the fact that he has only 2 pain free days a week it seems reasonable to start him on topiramate and follow up with PCP Differential Diagnosis Differential Diagnoses: The differential diagnosis associated with the presentation includes cluster, migraines, mass, tension Admission/Observation Consideration of admission/observation: Escalation of care including admission/observation considered work up negative stable for DC Lab Data 09/18/24 13:44 09/18/24 13:44 Labs: Lab Results 09/18/24 Range/Units 13:44 WBC 7.5 (4.8-10.8) X10*3/uL RBC 5.46 (4.60-5.80) X10*6/uL Hgb 16.0 (14.0-18.0) g/dl Hct 44.9 (42.0-52.0) % MCV 82.2 (80.0-98.0) fL MCH 29.3 (27.0-33.0) pg MCHC 35.6 (31.0-36.0) g/dl RDW 13.0 (11.0-16.0) % Plt Count 260 (160-400) X10*3/uL MPV 10.4 (9.4-12.4) fL Immature Gran % (Auto) 0.3 (0.0-0.4) % Neut % (Auto) 44.7 L (45-73) % Lymph % (Auto) 44.8 H (20-40) % [place] % (Auto) 8.9 (2-11) % Eos % (Auto) 0.9 (0-4) % Baso % (Auto) 0.4 (0-2) % Lymph # (Auto) 3.4 (1.2-4.9) X10*3/uL [place] # (Auto) 0.7 (0.1-1.2) X10*3/uL Eos # (Auto) 0.1 (0.0-0.4) X10*3/uL Baso # (Auto) 0.0 (0.0-0.2) X10*3/uL Abs Immat Gran (auto) 0.02 (0.00-0.03) X10*3/uL Absolute Neuts (auto) 3.4 (2.0-8.3) x10*3/uL Absolute Nucleated RBC 0.000 (0.0-0.012) X10*3/uL Nucleated RBC % (auto) 0.0 (0.0-0.2) /100WBC ESR 3 (0-15) MM/HR Sodium 141 (135-145) mmol/L Potassium 3.3 (3.3-5.1) mmol/L Chloride 110 H (96-108) mmol/L Carbon Dioxide 25 (22-29) mmol/L Anion Gap 9 L (12-20) BUN 8 L (9-16) mg/dL Creatinine 1.27 (0.5-1.4) mg/dL Estim Creat Clear Calc 69.9 Estimated GFR > 60 Random Glucose 104 (60-115) mg/dL Calcium 10.0 (8.4-10.2) mg/dL Total Bilirubin 0.5 (0.0-1.0) mg/dL AST 28 (5-37) U/L ALT 33 (0-40) U/L Alkaline Phosphatase 93 (39-117) U/L Total Protein 7.9 (6.5-8.0) g/dL Albumin 4.6 (3.5-5.0) g/dL Lipase 35 (8-78) U/L Influenza Type A (PCR) NEGATIVE (Negative) Influenza Type B (PCR) NEGATIVE (Negative) RSV RNA Qual (PCR) NEGATIVE (Negative) SARS-CoV-2 RNA (RT-PCR) NEGATIVE (Negative) Independent Interpretation I performed an independent interpretation of an: CT Scan (no mass) Radiology Impression Discussion of test interpretation with radiology: I have reviewed the radiologist's reading. External Record Review External record reviewed: Outpatient record and Prior outpatient radiology Prescription Management I considered prescription management with: Other Discharge Plan Discharge Clinical Impression: Tension headache Patient Disposition: Home, Self-Care Instructions: Topiramate (By mouth), Tension Headache (ED), Acute Headache (ED) Additional Instructions: CT head normal no acute findings at this time hydrate, PLEASE GET YOUR EYES CHECKED SOON POSSIBLE RETURN FOR ANY WORSENING SYMPTOMS OR CONCERNS. take topiramate at night before bed Prescriptions: New topiramate 25 mg tablet 25 mg PO BEDTIME Qty: 30 1RF No Action cyclobenzaprine 10 mg tablet 10 mg PO TID PRN (Reason: muscle spasm) Qty: 14 0RF lidocaine 5 % adhesive patch,medicated 1 patch topical DAILY Qty: 15 0RF Rx Instructions: leave on most painful area for up to 12 hrs naproxen 500 mg tablet 500 mg PO BID PRN (Reason: pain) Qty: 20 0RF ibuprofen 600 mg tablet 600 mg PO Q8H PRN (Reason: pain) Qty: 20 0RF amoxicillin-pot clavulanate 875-125 mg tablet 1 tab PO BID Qty: 14 0RF Excedrin Extra Strength 250-250-65 mg tablet 2 tab PO Q6H PRN (Reason: headache) Qty: 20 0RF ibuprofen 600 mg tablet 600 mg PO Q6H PRN (Reason: fever or pain) Qty: 30 0RF amoxicillin-pot clavulanate 875-125 mg tablet 1 tab PO BID Qty: 20 0RF Print Language: Northern Irish
[2024-09-18 13:48] LABS: MANUAL DIFF FLAG NO
[2024-09-18 13:57] LABS: Basophils Percent Auto 0.4 % (0-2); Eosinophils Absolute Auto 0.1 X10*3/uL (0.0-0.4); Eosinophils Percent Auto 0.9 % (0-4); Hematocrit 44.9 % (42.0-52.0); Imm Gran Abs Auto 0.02 X10*3/uL (0.00-0.03); Imm Gran Pct Auto 0.3 % (0.0-0.4); Lymphocytes Absolute Auto 3.4 X10*3/uL (1.2-4.9); Lymphocytes Percent Auto 44.8 % (20-40); Mean Corpuscular HGB Conc 35.6 g/dl (31.0-36.0); Mean Corpuscular Hemoglobin 29.3 pg (27.0-33.0); Mean Corpuscular Volume 82.2 fL (80.0-98.0); Mean Platelet Volume 10.4 fL (9.4-12.4); Monocytes Absolute Auto 0.7 X10*3/uL (0.1-1.2); Monocytes Percent Auto 8.9 % (2-11); Neutrophils Absolute Auto 3.4 x10*3/uL (2.0-8.3); Neutrophils Percent Auto 44.7 % (45-73); Platelet Count 260 X10*3/uL (160-400); Red Blood Count 5.46 X10*6/uL (4.60-5.80); White Blood Count 7.5 X10*3/uL (4.8-10.8)
[2024-09-18 14:04] LABS: Alanine Aminotransferase 33 U/L (0-40); Albumin Level 4.6 g/dL (3.5-5.0); Alkaline Phosphatase 93 U/L (39-117); Anion Gap 9 (12-20); Aspartate Amino Transferase 28 U/L (5-37); Bilirubin Total 0.5 mg/dL (0.0-1.0); Blood Urea Nitrogen 8 mg/dL (9-16); Carbon Dioxide 25 mmol/L (22-29); Chloride 110 mmol/L (96-108); Creatinine Clr Calc Pharmacy 69.9; Estimated Glomerular Filt Rate > 60; Glucose Random 104 mg/dL (60-115); Lipase 35 U/L (8-78); Potassium 3.3 mmol/L (3.3-5.1); Sodium 141 mmol/L (135-145); Total Protein 7.9 g/dL (6.5-8.0)
[2024-09-18 14:27] LABS: Influenza A PCR NEGATIVE (Negative); Influenza B PCR NEGATIVE (Negative); Resp Syncy Virus RNA Qual PCR NEGATIVE (Negative); SARS COV2 PCR INHOUSE NEGATIVE (Negative)
[2024-09-18 14:37] LABS: Erythrocyte Sedimentation Rate 3 MM/HR (0-15)
[2024-09-18] MEDS: Ketorolac Tromethamine 30 MG/ML VIAL IM (15:48)
[2024-09-18 16:07] VITALS: BP 143/90; PULSE 77; RESP 18; TEMP 36.6; O2SAT 99
--- OUTSIDE RECORDS SUMMARY | 2024-09-18 18:19 | XMS_ITS | Clinical Summary ---
Author Organization [facility], Address [address] [place] [address] [place] [address] Phone Care Team Providers Care Program Support Assistant Name Role Phone Unavailable Primary Care Provider Unavailabl e Active Problems Problem Noted Date Diagnosed Date Serum creatinine above reference range 3 Social History Tobacco Use Types Packs/Day Years Used Date Smoking Tobacco: Never Assessed Sex and Gender Information Value Date Recorded Sex Assigned at Not on file Legal Sex Male 1:05 PM EDT Gender Identity Not on file Sexual Orientation Not on file Plan of Treatment Health Maintenance Due Date Last Done Comments Hepatitis B Vaccine (1 of 3 - 19+ 3-dose series) 01/18/2007 Influenza Vaccine (Season Ended) 2025 Pneumococcal Vaccine: Pediat rics (0 to 5 Years) and At-Risk Patients (6 to 64 Years) Aged Out No longer eligi ble based on patient's age to complete this topic
--- OUTSIDE RECORDS SUMMARY | 2024-09-18 18:19 | XMS_ITS | Encounter Summary ---
Author Organization [employer] Address [address] [place] [address] Care Team Providers Care Special Procedures Tech Name Role Phone Denisha Arie ARZOLA Primary Care Provider [phone] Encounter Details Date Type Department Care Team (Late st Contact Info) Description 09/18/2024 Telephone [facility] [address] [phone] Arie Denny AGNP [facility] [place] [address] Social History Tobacco Use Types Packs/Day Years Used Date Smoking Tobacco: Never Smokeless Tobacco: Never Alcohol Use Standard Drinks/Week Comments Yes 0 (1 standard drink = 0.6 oz pur e alcohol) Occasional beer Housing Stability Answer Date Recorded What is your housing situation today? I have yana alvarez 08/03/[address] you li ve. Do you have problems with any of the following? None of the above 08/03/2024 Food Insecurity Answer Date Recorded Within the past 12 months, y ou worried that your food would run out before you got money to buy more: Never True 08/03/2024 Within the past 12 months,th e food you bought just didn't last and you didn't have enough money to get more: Never True Transportation Answer Date Recorded In the past 12 months, has l ack of transportation kept you from medical appts, meetings, work or from getting things needed for daily living? No 08/03/2024 Utilities Answer Date Recorded In the past 12 months, has t he electric, gas, oil or water company threatened to shut off services in your home? No 08/03/2024 Depression Answer Date Recorded Patient Health Questionnaire-2 Score 0 08/03/2024 Internet Access Answer Date Recorded Internet Access Q1 Yes 08/03/2024 Internet Access Q2 Not on file 08/03/2024 Sex and Gender Information Value Date Recorded Sex Assigned at Male 07/25/2024 3:03 PM EST Legal Sex Male 3:00 PM EST Gender Identity Male 07/25/2024 3:03 PM EST Sexual Orientation Straight 07/25/2024 3: 03 PM EST documented as of this encounter Miscellaneous Notes * Telephone Encounter - Yessenia Wallace LPN - 09/18/2024 2:22 PM EDT Spoke with Pt, states he has a headache on the front of head. States he has had it for 3 hours. States he took ibuprofen and it has not helped. Pt states it has been happening on and off for a month.Denies visual disturbances. Face feels tight. Attempted to scheduled appointment for Pt, but then stated he is currently in the ER. * Telephone Encounter - Minerva Jara - 09/18/2024 1:04 PM EDT Pt says he's having headache and have stuffy nose. documented in this encounter Plan of Treatment Upcoming Encounters Date Type Department Care Team (Late st Contact Info) Description 10/30/2024 10:00 AM EDT Office Visit [facility] [address] [place] [phone] OctoberArie AGNP [address] [place] [phone] documented as of this encounter Visit Diagnoses Not on filedocumented in this encounter Care Teams Special Procedures Tech Relationship Specialty Start Date End Date OctoberArie AGNP [address] [place] [phone] PCP - General Family Medicine 07/25/24 documented as of this encounter
--- OUTSIDE RECORDS SUMMARY | 2024-09-18 18:19 | XMS_ITS | Encounter Summary ---
Author Organization [facility] Address [address] [place] [address] Phone Care Team Providers Care Mental Health Program Manager Name Role Phone Unavailable Primary Care Provider Unavailabl e Encounter Details Date Type Department Care Team (Late st Contact Info) Description 02/16/2023 Documentation Only [facility], [address] [place] [address] [place] [address] [place] [address] Social History Tobacco Use Types Packs/Day Years Used Date Smoking Tobacco: Never Assessed Sex and Gender Information Value Date Recorded Sex Assigned at Not on file Legal Sex Male 1:05 PM EDT Gender Identity Not on file Sexual Orientation Not on file documented as of this encounter Plan of Treatment Not on file documented as of this encounter Visit Diagnoses Not on filedocumented in this encounter
--- OUTSIDE RECORDS SUMMARY | 2024-09-18 18:19 | XMS_ITS | Clinical Summary ---
Author Organization [employer] Address [address] [place] [address] [address] [place] [address] Care Team Providers Care Citrix Consultant Name Role Phone Arie Denny Primary Care Provider [phone] Allergies No known active allergies Medications ibuprofen 200 MG tablet Take by mouth. Active Active Problems Problem Noted Date Diagnosed Date Chronic tension-type headache, not intractable 0 08/03/2024 High serum creatinine 04/22/2023 Encounters Date Type Department Care Team Description 09/18/[address] [phone] Arie Denny AGNP 08/03/2024 12:40 PM EST Office Visit [address] [phone] Arie Denny AGNP Encounter to establish care (Primary Dx); Chronic tension-type headache, not intractable; High serum creatinine; Screening for diabetes mellitus (DM); Screening for metabolic disorder; Screening for lipid disorders; Need for hepatitis C screening test; Screening for HIV (human immunodeficiency virus) 07/27/[address] [phone] Arie Denny AGNP from Last 3 Months Family History Medical History Relation Name Comments Hypertension Mother Breast cancer Sister Relation Name Status Comments Mother Sister Social History Tobacco Use Types Packs/Day Years Used Date Smoking Tobacco: Never Smokeless Tobacco: Never Tobacco Cessation:Counseling Given: Not Answered Alcohol Use Standard Drinks/Week Comments Yes 0 [...] Orientation Straight 07/25/2024 3: 03 PM EST Last Filed Vital Signs Vital Sign Reading Time Taken Comments Blood Pressure 124/80 08/03/2024 12:45 PM EST Pulse 77 08/03/2024 12:45 PM EST Temperature 36.5 ??C (97.7 ??F) 08/03/2024 12:[address] Respiratory Rate - - Oxygen Saturation 99% 08/03/2024 12:45 PM EST Inhaled Oxygen Concentration - - Weight 81.5 kg (179 lb 9.6 oz) 08/03/2024 12:45 PM EST Height 165.1 cm (5' 5 ) 08/03/2024 12:45 PM EST Body Mass Index 29.89 08/03/2024 12:45 PM EST Plan of Treatment Upcoming Encounters Date Type Department Care Team (Late st Contact Info) Description 10/30/2024 10:00 AM EDT Office Visit [address] [phone] Denisha ArieDARIUSZ [address] [place] [address] Health Maintenance Due Date Last Done Comments Family Planning (PISQ) 01/18/2003 DTaP/Tdap/Td Vaccines (1 - Tdap) 01/18/2007 Hepatitis B Vaccines (1 of 3 - 19+ 3-dose series) 01/18/2007 COVID-19 Vaccine (3 - 2023-2 5 season) 2024 10/24/2020, 09/26/2020 Influenza Vaccine (#1) 2024 Alcohol/Substance Use Screening 08/03/2025 08/03/2024 Depression Screening 08/03/2025 08/03/2024, 08/03/2024 SDOH Screening 08/03/2025 08/03/2024 Tobacco Screening 08/03/2025 08/03/2024 Lipid Panel 08/03/2029 08/03/2024 Zoster Vaccines (1 of 2) 01/18/2038 RSV Patients and Patients Aged 60 years or older (1 - 1-dose 75+ series) 01/18/2063 HIV Screening Completed 08/03/2024 Hepatitis C Screening Completed 08/03/2024 HIB Vaccines Aged Out No longer eligi ble based on patient's age to complete this topic HPV Vaccines Aged Out No longer eligi ble based on patient's age to complete this topic Hepatitis A Vaccines Aged Out No long er eligible based on patient's age to complete this topic IPV Vaccines Aged Out No longer eligi ble based on patient's age to complete this topic Meningococcal Vaccine Aged Out No vidal delvin eligible based on patient's age to complete this topic Pneumococcal Vaccine: Pediatrics (0 to 5 Years) and At-Risk Patients (6 to 49) Years) Aged Out No longer eligible b ased on patient's age to complete this topic RSV under 20 months Aged Out No longe r eligible based on patient's age to complete this topic Rotavirus Vaccines Aged Out No longer eligible based on patient's age to complete this topic Procedures Procedure Name Priority Date/Time Associated Diagnosis Comments CBC Routine 08/03/2024 1:17 PM EST High serum creatinine HIV 1/2 ANTIGEN/ANTIBODY, FOURTH GENERATION W/RFL Routine 08/03/2024 1:17 PM EST Screening for HIV (human immunodeficiency virus) HEPATITIS C AB W/REFL TO HCV RNA, QN, PCR Routine 08/03/2024 1:17 PM EST Screening for HIV (human immunodeficiency virus) LIPID PANEL WITH REFLEX TO DIRECT LDL Routine 08/03/2024 1:17 PM EST Screening for lipid disorders HEMOGLOBIN A1C Routine 08/03/2024 1:17 PM EST Screening for diabetes mellitus (DM) COMPREHENSIVE METABOLIC PANEL Routine 08/03/2024 1:17 PM EST High serum creatinine ALBUMIN, RANDOM URINE W/CREATININE Routine 08/03/2024 1:17 PM EST High serum creatinine from Last 3 Months Results * (ABNORMAL) Lipid Panel with Reflex to Direct LDL (08/03/2024 1:17 PM EST) Cholesterol, Total 129 <200 mg/dL [facility] HDL Cholesterol 30(L) > OR = 40 mg/dL [facility] Triglycerides 176(H) <150 mg/dL [facility] LDL Cholesterol 74 mg/dL Q[facility] Comment: Reference range: <100 Desirable range <100 mg/dL for primary prevention; ?? <70 mg/dL for patients with CHD or diabetic patients with > or = 2 CHD risk factors. LDL-C is now calculated using the Ángel-Nicko calculation, which is a validated novel method providing better accuracy than the Friedewald equation in the estimation of LDL-C. Ángel SS et al. CARLA. 2013;310(19): 6939-6141 (http://education.Omedix.Medityplus/faq/OOK334) Chol/HDLC Ratio 4.3 <5.0 (calc) [facility] Non-HDL Cholesterol 99 <130 mg/dL [facility] Comment: For patients with diabetes plus 1 major ASCVD risk factor, treating to a non-HDL-C goal of <100 mg/dL (LDL-C of <70 mg/dL) is considered a therapeutic option. Blood 08/03/2024 1:17 PM EST 08/03/2024 1:17 PM EST Narrative [facility] - 08/04/2024 9:17 PM EST FASTING:NO FASTING: NO Arie May AGNP LAB BLOOD ORDERABLES Final Resul t Performing Organization Address [facility] de Phone Number [facility] [address] [place] [address], [place] [address] [facility] [address] [place] [phone] * Albumin, Random Urine W/Creatinine (08/03/2024 1:17 PM EST) Creatinine, Random Urine 250 20 - 320 mg/dL [facility] Albumin, Urine 0.2 See Note: mg/dL [facility] Comment: Reference Range: Reference Range Not established Albumin/Creatinin e Ratio, Random Urine 1 <30 mg/g creat [facility] Comment: The ADA defines abnormalities in albumin excretion as follows: Albuminuria Category ?Result (mg/g creatinine) Normal to Mildly increased ?? <30 Moderately increased ? 30-299 Severely increased ? > OR = 300 The ADA recommends that at least two of three specimens collected within a 3-6 month period be abnormal before considering a patient to be within a diagnostic category. Urine (Urine, Random) 08/03/2024 1:17 PM EST 08/03/2024 1:17 PM EST Narrative [facility] - 08/04/2024 9:17 PM EST FASTING:NO FASTING: NO Arie May AGNP LAB URINE ORDERABLES Final Resul t Performing Organization Address [facility] de Phone Number [address], [place] [address] [facility] [address] [place] [phone] * Hepatitis C Antibody with Reflex to HCV, RNA, Quantitative, Real-Time PCR (08/03/2024 1:17 PM EST) Hepatitis C Antibody NON-REACT DOMINIK NON-REACT DOMINIK [facility] Comment: HCV antibody was non-reactive. There is no laboratory evidence of HCV infection. In most cases, no further action is required. However, if recent HCV exposure is suspected, a test for HCV RNA (test code 56536) is suggested. For additional information please refer to http://TapFit.Uplift Education/faq/OWV07h5 (This link is being provided for informational/ educational purposes only.) Blood Venous blood specimen / Unknown 08/03/2024 1:17 PM EST 08/03/2024 1:17 PM EST Narrative [facility] - 08/04/2024 9:17 PM EST FASTING:NO FASTING: NO Arie May [facility] LAB BLOOD ORDERABLES Final Resul t [facility] [address] [facility], [facility], [place] [address] [facility] [address] [place] [address] * HIV-1/2 Antigen and Antibodies, Fourth Generation, with Reflexes (08/03/2024 1:17 PM EST) Pathologist [facility] HIV Antigen/Antibody, 4th Generation NON-REAC TIVE NON-REAC TIVE [facility] Comment: HIV-1 antigen and HIV-1/HIV-2 antibodies were not detected. There is no laboratory evidence of HIV infection. PLEASE NOTE: This information has been disclosed to you from records whose confidentiality may be protected by state law. ??If your state requires such protection, then the state law prohibits you from making any further disclosure of the information without the specific written consent of the person to whom it pertains, or as otherwise permitted by law. A general authorization for the release of medical or other information is NOT sufficient for this purpose. ?? For additional information please refer to http://education.Uplift Education/faq/ESN657 (This link is being provided for informational/ educational purposes only.) The performance of this assay has not been clinically validated in patients less than 2 years old. Blood Venous blood specimen / Unknown 08/03/2024 1:17 PM EST 08/03/2024 1:17 PM EST Narrative [facility] - 08/04/2024 9:17 PM EST FASTING:NO FASTING: NO us Arie May AGNP LAB BLOOD ORDERABLES Final Resul t [facility] [address], [place] [address] [facility] [address] [place] [address] * CBC (08/03/2024 1:17 PM EST) White Blood Cell Count 6.6 3.8 - 10.8 Thousand/ uL [facility] Red Blood Cell Count 5.18 4.20 - 5.80 Million/u L [facility] Hemoglobin 15.0 13.2 - 17.1 g/dL [facility] Hematocrit 45.6 38.5 - 50.0 % [facility] MCV 88.0 80.0 - 100.0 fL [facility] MCH 29.0 27.0 - 33.0 pg [facility] MCHC 32.9 32.0 - 36.0 g/dL [facility] Comment: For adults, a slight decrease in the calculated MCHC value (in the range of 30 to 32 g/dL) is most likely not clinically significant; however, it should be interpreted with caution in correlation with other red cell parameters and the patient's clinical condition. RDW 13.2 11.0 - 15.0 % [facility] Platelet Count 251 140 - 400 Thousand/ uL [facility] MPV 12.1 7.5 - 12.5 fL [facility] Blood Venous blood specimen / Unknown 08/03/2024 1:17 PM EST 08/03/2024 1:17 PM EST Narrative [facility] - 08/04/2024 9:17 PM EST FASTING:NO FASTING: NO Arie May [facility] LAB BLOOD ORDERABLES Final Resul t Performing Organization Address [facility] de Phone Number [facility] [address], [facility] [place] [address] [facility] [address] [place] [address] * (ABNORMAL) Hemoglobin A1c (08/03/2024 1:17 PM EST) Hemoglobin A1c 6.1(H) <5.7 % of total Hgb [facility] Comment: For someone without known diabetes, a hemoglobin A1c value between 5.7% and 6.4% is consistent with prediabetes and should be confirmed with a follow-up test. For someone with known diabetes, a value <7% indicates that their diabetes is well controlled. A1c targets should be individualized based on duration of diabetes, age, comorbid conditions, and other considerations. This assay result is consistent with an increased risk of diabetes. Currently, no consensus exists regarding use of hemoglobin A1c for diagnosis of diabetes for children. Blood Venous blood specimen / Unknown 08/03/2024 1:17 PM EST 08/03/2024 1:17 PM EST Narrative [facility] - 08/04/2024 9:17 PM EST FASTING:NO FASTING: NO Arie May [facility] LAB BLOOD ORDERABLES Final Resul t Performing Organization Address [facility] de Phone Number [facility] [address], [facility] [place] [address] [facility] [address] [place] [address] * Comprehensive Metabolic Panel (08/03/2024 1:17 PM EST) Glucose 92 65 - 139 mg/dL [facility] Comment: ? Non-fasting reference interval Urea Nitrogen (BUN) 8 7 - 25 mg/dL [facility] Creatinine, Serum 1.12 0.60 - 1.26 mg/dL [facility] eGFR 87 > OR = 60 mL/min/1. 73m2 [facility] BUN/Creatinine Ratio SEE NOTE: (calc) [facility] Comment: ?? Not Reported: BUN and Creatinine are within ?? reference range. ? Sodium 141 135 - 146 mmol/L [facility] Potassium 3.8 3.5 - 5.3 mmol/L [facility] Chloride 107 98 - 110 mmol/L [facility] Carbon Dioxide 27 20 - 32 mmol/L [facility] Calcium 9.4 8.6 - 10.3 mg/dL [facility] Protein, Total 7.3 6.1 - 8.1 g/dL [facility] Albumin 4.4 3.6 - 5.1 g/dL [facility] Globulin 2.9 1.9 - 3.7 g/dL (calc) [facility] Albumin/Globuli n Ratio 1.5 1.0 - 2.5 (calc) [facility] Bilirubin, Total 0.3 0.2 - 1.2 mg/dL [facility] Alkaline Phosphatase 73 36 - 130 U/L [facility] AST 19 10 - 40 U/L [facility] ALT 25 9 - 46 U/L [facility] Blood Venous blood specimen / Unknown 08/03/2024 1:17 PM EST 08/03/2024 1:17 PM EST Narrative [facility] - 08/04/2024 9:17 PM EST FASTING:NO FASTING: NO us Arie May AGNP LAB BLOOD ORDERABLES Final Resul t [facility] [address], [place] [address] [facility] [address] [place] [address] from Last 3 Months Insurance [facility] Care Teams Citrix Consultant Relationship Specialty Start Date End Date October, DARIUSZ Sargent [address] [place] [phone] PCP - General Family Medicine 07/25/24
--- OUTSIDE RECORDS SUMMARY | 2024-09-18 18:20 | XMS_ITS | Clinical Summary ---
Author Organization [facility] Address [address] [place] [address] Care Team Providers Care President [employer] Name Role Phone Unavailable Primary Care Provider Unavailabl e Source Comments PLEASE NOTE, if this patient is a minor, it may be UNLAWFUL to discuss sensitive information that is contained in these records (such as FAMILY PLANNING, MENTAL HEALTH or SUBSTANCE ABUSE) with the minor patient's parent or other person without the patient's specific authorization.[facility] Immunizations Immunization Administration Dates Next Due Moderna COVID-19 Vaccine, re d cap blue label, 12+ Primary Series 10/24/2020,09/26/2020 Social History Tobacco Use Types Packs/Day Years Used Date Smoking Tobacco: Never Assessed Social Connections Answer Date Recorded Social Connections and Isolation 0 09/26/2020 Financial Resource Strain Answer Date R ecorded Financial Resource Strain 0 2020 Stress Answer Date Recorded Stress 0 09/26/2020 Physical Activity Answer Date Recorded Physical Activity 0 09/26/2020 Food Insecurity Answer Date Recorded Food 0 09/26/2020 Transportation Needs Answer Date Record ed Transportation 0 09/26/2020 Housing Stability Answer Date Recorded Housing 0 09/26/2020 Safety and Environment Answer Date Oz rded Safety 0 09/26/2020 Utilities Answer Date Recorded Utilities 0 09/26/2020 Employment Answer Date Recorded Employment 0 09/26/2020 Sex and Gender Information Value Date Recorded Sex Assigned at Not on file Legal Sex Male 8:28 PM PDT Gender Identity Not on file Sexual Orientation Not on file Plan of Treatment Health Maintenance Due Date Last Done Comments Anxiety Screening 1988 Diabetes Screening 1988 Hepatitis C Screening 1988 Tobacco Screening 1988 HIV Screening 01/18/2003 Hypertension Screening (#1) 01/18/2006 Imm-DTaP/Tdap/Td (1 - Tdap) 01/18/2007 Imm-Hepatitis B (1 of 3 - 19 + 3-dose series) 01/18/2007 [id number] (2023- season) 2024 021, 09/26/2020 Imm-Influenza (#1) 2024 Alcohol and Drug Screen 06/13/2024 Depression Annual Screen 06/13/2024 Insurance [facility] Member Subscriber Plan / Payer (Ef fective 2020-Present) Name:Kristy Pryor Relation to Subscriber:Self Name:Kristy Pryor Payer ID:[id number] Group ID:Not on file Type:Indemnity Address: [facility] [id number] [place] [id number]
== END 2024-09-18 16:07 | disposition home or self-care (01) ==
PROVIDERS: Physician Assistant; Emergency Provider Emergency Medicine; PCP Nurse Practitioner Gerontology
DX: G44.209 Tension-type headache, unspecified, not intractable (principal); Z03.818 Encounter for observation for suspected exposure to other biological agents ruled out
CPT/HCPCS: 0241U; 36415; 70450; 80053; 83690; 85025; 85652; 96372; 99283; 99284; J1885

== ENCOUNTER → 2024-09-18 14:57 | Outpatient (BNV) | payer OTHER, SELFPAY | PROVIDERS: Emergency Provider Emergency Medicine; PCP Nurse Practitioner Gerontology; Visit Provider Radiology Diagnostic Radiology | DX: R51.9 Headache, unspecified (principal) | CPT/HCPCS: 70450 ==